=== PATIENT | male | born 1975 | race Hispanic/Latino ===

== ENCOUNTER → 2021-09-23 | Outpatient (CLI) | payer BC | LOC: RAD 15:10 | PROVIDERS: ATTEND Family Medicine | DX: R05.9 Cough, unspecified (principal) | CPT/HCPCS: 71046 ==

== ENCOUNTER → 2022-05-10 | Outpatient (CLI) | payer BC | LOC: RAD 12:33 | PROVIDERS: ATTEND Family Medicine | DX: J45.909 Unspecified asthma, uncomplicated (principal) | CPT/HCPCS: 71046 ==